=== PATIENT | male | born 1945 | race Caucasian/White ===

== ENCOUNTER → 2016-07-27 | Outpatient (CLI) | payer OTHER, MEDICARE ==
[~2016-07-27] MED LIST: ASPIRIN325; CVS FISH OIL 11 EAC3; EFFIENT10 MG PO; LISINOPRIL-HCT1 EAC2; NIASPAN 500 MG500 M1; PRILOSEC 20 MG20 MG; TOPROL XL50 MG; ZOCOR 20 MG TAB20 M1
--- NOTE | ~2016-07-27 | 2DMMODE ---
[facility] [place] [address] 2 D/M-MODE ECHOCARDIOGRAM Name: DAYANA WRAREN [id number] Admission: 07/27/16 Attend Phys: James Chavez MD Discharge: Date of : 43 Date of Service: 07/27/16 1020 Report #: [id number] THIS REPORT FOR: //name// APPROVED REPORT Study performed: 07/27/2016 08:34:38 EXAM: Comprehensive 2D, Doppler, and color-flow Echocardiogram Patient Location: Out-Patient Room #: Echo lab Other Information Study Quality: Good Indications CAD Hypertension/HDD 2D Dimensions RVDd: 36.03 mm LVEF(%): 50.51 (>50%) IVSd: 10.46 (7-11mm) LVOT Diam: 21.04 (18-24mm) LVDd: 45.02 mm PWd: 10.63 (7-11mm) Ascending Ao: 31.72 (22-36mm) LVDs: 33.51 (25-40mm) Aortic Root: 28.59 mm IVC: 19.00 mm Toussaint's LVEF: 50.51 % Volumes Left Atrial Volume (Systole) Single Plane 4CH: 28.78 mL Single Plane 2CH: 29.70 mL LA ESV Index: 18.00 mL/m2 Aortic Valve AoV Peak Alberto.: 1.09 m/s AO Peak Gr.: 4.77 mmHg LVOT Max P.97 mmHg LVOT Max V: 1.00 m/s STEVE Vmax: 3.17 cm2 Mitral Valve E/A Ratio: 1.0 MV Decel. Time: 199.57 ms MV E Max Alberto.: 0.78 m/s MV A Alberto.: 0.76 m/s MV PHT: 57.88 ms [facility] [place] [address] 2 D/M-MODE ECHOCARDIOGRAM Name: DAYANA WARREN Room #: [facility]#: [id number] Admission: 07/27/16 Attend Phys: James Chavez MD Discharge: Date of : 43 Date of Service: 07/27/16 1020 Report #: [id number] IVRT: 92.27 ms Pulmonary Valve PV Peak Alberto.: 0.87 m/s PV Peak Gr.: 3.02 mmHg Pulmonary Vein P Vein S: 0.41 m/s P Vein A: 0.24 m/s P Vein D: 0.38 m/s P Vein A Dur.: 101.5 msec P Vein S/D Ratio: 1.08 Tricuspid Valve RAP Estimate: 5.00 mmHg Left Ventricle The left ventricle is normal size. There is normal left ventricular wall thickness. The left ventricular systolic function is normal. The left ventricular ejection fraction is within the normal range. LVEF is 50-55%. The left ventricular diastolic function is normal. Right Ventricle The right ventricle is normal size. The right ventricular systolic function is normal. Atria The left atrium size is normal. The right atrium size is normal. Aortic Valve The aortic valve is normal in structure. No aortic regurgitation is present. There is no aortic valvular stenosis. Mitral Valve The mitral valve is normal in structure. Trace mitral regurgitation. No evidence of mitral valve stenosis. Tricuspid Valve The tricuspid valve is normal in structure. There is no tricuspid valve regurgitation noted. Pulmonic Valve The pulmonary valve is normal in structure. There is no pulmonic valvular regurgitation. Great Vessels The aortic root is normal in size. IVC is normal in size and collapses >50% with inspiration. [address] [address] 2 D/M-MODE ECHOCARDIOGRAM Name: DAYANA WARREN Room #: REG [facility]#: [id number] Admission: 07/27/16 Attend Phys: James Chavez MD Discharge: Date of : 43 Date of Service: 07/27/16 1020 Report #: [id number] Pericardium There is no pericardial effusion. <Conclusion> The left ventricle is normal size. The left ventricular systolic function is normal. The right ventricle is normal size. The left atrium size is normal. The right atrium size is normal. The aortic valve is normal in structure. Trace mitral regurgitation. There is no pericardial effusion. <ELECTRONICALLY SIGNED> By: James Chavez MD 07/27/16 1020 1020 1020 James Chavez MD /INF
== END ==
LOC: CV 09:30
DX: I25.10 Atherosclerotic heart disease of native coronary artery without angina pectoris (principal)

== ENCOUNTER → 2017-07-05 | Outpatient (CLI) | payer OTHER, MEDICARE | LOC: NUC 07:04 | DX: I25.10 Atherosclerotic heart disease of native coronary artery without angina pectoris (principal); I10 Essential (primary) hypertension; E78.5 Hyperlipidemia, unspecified ==

== ENCOUNTER → 2017-10-14 | Outpatient (CLI) | payer OTHER, MEDICARE ==
[~2017-10-14] VITALS: Ht 175.3 cm; Wt 76.7 kg
[~2017-10-14] MED LIST changes: +ASPIR 8181 M1 PO; +CRESTOR10 MG PO; +FISH OIL 1,001000 M2 PO; +LISINOPRIL40 MG PO; +METOPROLOL SUCC50 MG PO
--- NOTE | ~2017-10-14 | P ---
[facility] [place] [address] PROCEDURE REPORT Name: DAYANA WARREN Room #: REG [facility]#: [id number] Admission: 10/14/17 Attend Phys: Deven Jimenez MD Discharge: Date of : 43 Report #: [id number] THIS REPORT FOR: //name// CC: Deven Das DO BRIEF HISTORY: The patient is a 72-year-old male for average risk colonoscopy. His last colonoscopy was more than 10 years ago. PREOPERATIVE DIAGNOSIS: Average risk screening colonoscopy. POSTOPERATIVE DIAGNOSES: 1. Negative average risk screening colonoscopy. 2. Moderate sigmoid diverticulosis coli. MEDICATIONS: Deep sedation with propofol per Anesthesia. SPECIMEN: None. ESTIMATED BLOOD LOSS: None. PROCEDURE: Colonoscopy to cecum and terminal ileum. FINDINGS: Prior to propofol sedation, procedure of colonoscopy discussed with the patient as well as potential risks and its complications. He indicates he understands and desires to proceed. DESCRIPTION OF PROCEDURE: With the patient in left lateral decubitus position, digital examination was completed, which revealed no abnormalities. Subsequently, the Olympus video colonoscope was introduced in the rectum, advanced under direct vision to the cecum. Done with minimal difficulty. The cecum was identified by the ileocecal valve and the appendiceal orifice. I was able to visualize the distal segment of the terminal ileum, which was inspected and noted to be unremarkable. At that point, the scope was slowly withdrawn and careful circumferential views obtained. As we withdrew the scope, the prep was noted to be good. The mucosa was within normal limits, normal vascular pattern, normal light reflex. As we withdrew the scope, no mucosal abnormalities were seen. No polyps were seen on this examination. No abnormalities were noted until the sigmoid colon was reached, at which point he was noted to have moderately severe diverticular disease without endoscopic evidence of diverticulitis. The scope was further withdrawn and no additional abnormalities were seen. Upon retroflexion of the rectum, no abnormalities were seen. Scope was withdrawn. The patient tolerated the procedure well. CONDITION OF THE PATIENT UPON DISCHARGE: Following procedure, the patient drowsy, aroused, conversant and will be discharged home when fully ambulatory. [address] [address] PROCEDURE REPORT Name: DAYANA WARREN Room #: REG [facility].#: [id number] Admission: 10/14/17 Attend Phys: Deven Jimenez MD Discharge: Date of : 43 Report #: [id number] INSTRUCTIONS TO THE PATIENT AND FAMILY AT THE TIME OF DISCHARGE: No neoplastic lesions were seen on today's exam. He is considered average risk. Suggest followup colon exam in 10 years for average risk patient. He will return to care of Dr. Bertin Das and return to see me as needed. Withdrawal time was 12 minutes 27 seconds. <ELECTRONICALLY SIGNED> By: Deven Jimenez MD 10/15/17 0721 [id number] Deven Jimenez MD /trace
== END | disposition home or self-care (01) ==
LOC: GI 07:11
DX: Z12.11 Encounter for screening for malignant neoplasm of colon (principal); K57.30 Diverticulosis of large intestine without perforation or abscess without bleeding; I10 Essential (primary) hypertension; E78.5 Hyperlipidemia, unspecified; I25.2 Old myocardial infarction; Z98.890 Other specified postprocedural states; Z95.5 Presence of coronary angioplasty implant and graft; Z79.899 Other long term (current) drug therapy; Z79.82 Long term (current) use of aspirin
CPT/HCPCS: 62110; 62900

== ENCOUNTER 2017-11-17 06:38 | Day surgery (SDC) | payer OTHER, MEDICARE ==
[~2017-11-17] VITALS: Ht 175.3 cm; Wt 74.8 kg
--- NOTE | ~2017-11-17 | O ---
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 POSTOPERATIVE DIAGNOSIS: Right neck mass, frozen section positive for atypical squamous cells. PROCEDURE PERFORMED: 1. Right supraomohyoid neck dissection. 2. Right partial parotidectomy with facial nerve dissection and preservation. 3. Excision of right submandibular gland. 4. Nerve integrity monitoring x 3 hours. 5. Direct laryngoscopy with multiple biopsies. 6. Flexible bronchoscopy. 7. Rigid esophagoscopy. INDICATIONS: The patient is a 72-year-old gentleman initially referred for a right-sided neck mass by his primary care physician, Dr. Das. He had noticed an incidental swelling. This was not symptomatic in the sense of pain. He had no systemic symptoms of fever, chills, or night sweats. CT scan showed a 2.8-cm cystic mass in the right submandibular area interposed between the submandibular gland and the anterior parotid gland. There were multiple subcentimeter lymph nodes present that did not appear to pathologically enhance. Fine needle aspiration was done on the mass positive for malignant cells, favoring squamous cell carcinoma. P16 staining was done, this was negative. In light of the above, recommendations were made to proceed with definitive biopsy for diagnosis in addition to definitive treatment of the mass. As this was labeled squamous cell carcinoma, panendoscopy was recommended for multiple blind biopsies. DESCRIPTION OF PROCEDURE: The patient was brought to the operating room and placed supine on the operating table. After adequate general anesthesia was achieved via endotracheal intubation, he was turned 90 degrees. Procedure began with a panendoscopy. A Dedo laryngoscope was used to examine the upper airway. Oral cavity, nasopharynx, oropharynx, hypopharynx and larynx were systematically evaluated. There was no abnormal mass. The patient is status post tonsillectomy. Dedo laryngoscope was removed and a Jesberg rigid esophagoscope was passed through the cricopharyngeus 40 cm to the stomach. With withdrawal of the scope, complete examination was made of the mucosa of the esophagus in a [address] [address] OPERATIVE REPORT Name: BRIANADAYANA Room #: 432-P REG [facility]#: [id number] Admission: 11/17/17 Attend Phys: Lalti Walden MD Discharge: Date of : 43 Report #: [id number] 360-degree fashion on withdrawal. No abnormal masses or lesions were noted. The Jesberg esophagoscope was removed. The Dedo laryngoscope was then reintroduced and the patient was placed into suspension from the [facility]. Through the laryngoscope and alongside the endotracheal tube, flexible bronchoscopy was undertaken. A complete examination was made of the subglottis, trachea, valentino, right and left mainstem bronchus, segmental and subsegmental bronchi as far as feasible with the bronchoscope. Serial and systematic exam was done beginning on the right upper lobe and extending through the right side and then back to the left side. No abnormal masses or mucosal lesions were noted. Bronchoscope was then removed. The laryngoscope was then taken out of suspension and biopsies were then undertaken in the right and left piriform sinus, right and left base of the tongue, right and left tonsillar fossa, right and left nasopharynx. No abnormal or suspicious lesions were palpated or noted. Biopsies were done as a workup for unknown primary. These had minimal bleeding. The Dedo laryngoscope was then removed. The patient was then turned to 480 degrees and the planned incision was marked out in the right neck as a submandibular incision. A posterior limb was then drawn and a standard Schobinger incision in case of need to convert to a full neck dissection. This was injected with 1% Xylocaine with 1:100,000 epinephrine. The patient was then prepped and draped in a sterile fashion and all gowns and gloves were changed. The sterile part of the procedure was kept separate from the endoscopy. As a separate part of the procedure, the Xomed nerve integrity monitor was applied to the right face for continuous intraoperative monitoring of the facial nerve. Needle electrodes were placed in orbicularis jordon and orbicularis oculi muscles with ground electrodes in the soft tissue overlying the sternum and contralateral shoulder. Electrode resistance and impedance was measured and found to be acceptable. Threshold and stimulus intensity parameters were set and the patient was monitored for the entirety of the case of approximately 3 hours in order to locate and protect vital structures. The procedure began with an incision in the submandibular region. This was carried anteriorly to the submental and then posteriorly extending around up towards the mandibular angle and simulating the lower part of a Benton incision. Incision was made through skin and subcutaneous tissue and platysma. Subplatysmal flaps were then elevated superiorly and inferiorly. Care was taken to elevate the superior flap with a #10 blade to avoid the marginal mandibular branch of the facial nerve. These were held back then with stay sutures of 2-0 silk. An incision was then made on the submandibular fascia and a fascial flap was then elevated housing the marginal mandibular branch of the facial nerve, which was identified positively with probe stimuli. Once the nerve was identified, the dissection was taken anteriorly. Dissection then began in level 1. The lymph node bearing tissue overlying the genioglossus muscle was then excised, added superior border and left lateral border. This was extended down to the laryngeal cartilage just below the omohyoid muscle. This was then swept from lateral to medial. Dissection then continued until a mylohyoid muscle [facility] [address] [place] [address] OPERATIVE REPORT Name: DAYANA WARREN Nancy Room #: 432-P REG [facility].#: [id number] Admission: 11/17/17 Attend Phys: Lalit Walden MD Discharge: Date of : 43 Report #: [id number] could be seen various veins were then identified, clamped between Ligaclips and divided. The submandibular gland was then freed the, muscle was retracted. The lingual nerve was identified. This person thought accomplished bruising, clamped between Ligaclips and divided. It is submandibular duct identified, clamped between Ligaclips and divided. This was then swept posterior and inferior continuing the dissection posterior dissection was then made inferiorly along the omohyoid muscle and then extended along the omohyoid muscle back to the sternocleidomastoid muscle. All lymph node bearing tissue superior to this was then freed. The jugular vein and carotid artery were identified. Attention was then returned to the submandibular triangle. Submandibular gland continued to dissect posteriorly. The mass was easily identified and opposed in a space between the posterior submandibular gland and the anterior parotid. Once the marginal mandibular branch of the facial nerve was identified, partial parotidectomy was then undertaken retrograde from the distal to proximal. Dissection then continued on the nerve until the lower half of the parotid gland could be excised with a mass. This mass was a very firm appearing mass, but did seem to have a cystic component even though this had been deflated by the fine needle aspiration. Once the parotid was free, dissection was continued inferiorly until the digastric muscle was identified. The hypoglossal nerve was then positively identified and protected there and then, attention was then turned more inferiorly. The anterior border of sternocleidomastoid muscle was then excised with harmonic lee ann and the fascia was then reflected superiorly. Beginning at the omohyoid muscle inferiorly, all lymph node bearing tissue was removed off the jugular vein from inferior to superior. There was an external jugular vein, clamped between Ligaclips and divided. Dissection then continued from inferior to superior. This lymph node bearing tissue was removed off the jugular vein and up to the hinge of where the dissection on the parotid ended. The care was taken to protect the jugular vein as well as the spinal accessory nerve, which was identified positively and confirmed with probe stimuli posterior to the jugular vein. The dissection then continued under the mandible and then was excised inferior to the facial nerve along the sternocleidomastoid muscle. The specimen was then marked for pathology and levels and oriented with the mass. This was delivered off the field as a frozen section. Frozen section of the mass showed atypical squamous cells, but did not confirm squamous cell carcinoma. In the differential diagnosis of the cystic mass was a branchial cleft cyst and Warthin's tumor. 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 Because of this finding and because there was a clear surgical plane for wide local excision around the mass there, it was elected not to proceed with any more radical surgery. The wound was then irrigated, hemostasis assured with bipolar cautery and clip ligature. The submandibular fascia was then sutured back into anatomic position on the digastric muscle. A 15-Belgian Bruno drain was placed through a separate posterior nerve incision and then, the subcutaneous tissue closed with interrupted 3-0 Vicryl and 4-0 Vicryl deep dermal sutures were placed as well as 35 wide santos on skin. The drain was sutured in place with 2-0 silk and connected to bulb suction. The patient was then returned to anesthesia, awakened without difficulty and returned to [facility] [address] [place] [address] OPERATIVE REPORT Name: DAYANA WARREN Room #: 432-P [facility] M.R.#: [id number] Admission: 11/17/17 Attend Phys: Lalit Walden MD Discharge: Date of : 43 Report #: [id number] recovery in good condition. Sponge and needle counts were correct. There were no complications. Blood loss was about 100 mL. He will be watched overnight for monitoring. Presuming he does well, discharged to home with plans to follow up with me in 48 hours for drain removal, 1 week for suture removal. Written and verbal discharge instructions and emergency precautions have been given to his . DISCHARGE MEDICATIONS: Include hydrocodone/acetaminophen 7.5/325 one to two q.4-6h. p.r.n., Phenergan suppository 25 mg 1 per rectum q.4-6h. p.r.n., clindamycin 300 mg 1 t.i.d. for 10 days. He is instructed on light activity and soft diets. <ELECTRONICALLY SIGNED> By: Lalit Walden MD 11/18/17 1219 1437 [id number] Lalit Walden MD /nt
--- NOTE | ~2017-11-17 | PATH ---
[facility] [place] [address] PATHOLOGY RPT PROCEDURE Name: DAYANA WARREN Room #: DEP [facility]..#: [id number] Admission: 11/17/17 Date of : 43 Discharge: 11/18/17 Report #: [id number] Path Case #: [id number] [facility] Accession Number: [id number] . 01 Material submitted: . PART A: RIGHT MODIFIED NECK DISSECTION AND PARTIAL PAROTIDECTOMY PART B: RIGHT NASAL PHARYNX PART C: LEFT NASAL PHARYNX PART D: RIGHT TONSIL FOSSA PART E: LEFT TONSIL FOSSA PART F: RIGHT PYRIFORM SINUS PART G: LEFT PYRIFORM SINUS PART H: RIGHT BASE OF TONGUE PART I: LEFT BASE OF TONGUE . 01 Clinician provided ICD-10: 0 . 01 Clinical history: . 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 . 02 Diagnosis: A. Level I, radical neck dissection: - CYSTIC MASS SHOWING ATYPICAL SQUAMOUS EPITHELIUM (PLEASE SEE COMMENT). - Five reactive lymph nodes; negative for malignancy (0/5). - Skeletal muscle with reactive changes. . Submandibular gland, radical neck dissection: - Submandibular gland with reactive changes; negative for malignancy. . Parotid gland, partial parotidectomy: - Foci of oncocytic metaplastic changes. - Background salivary gland tissue showing reactive changes; negative for malignancy. . Level IIA, radical neck dissection: - Five reactive lymph nodes; negative for malignancy (0/5). . Level IIB, radical neck dissection: - Four reactive lymph nodes; negative for malignancy (0/4). . Level III; radical neck dissection: - No lymph nodes identified. - Fibrovascular and fibroadipose connective tissue with congestion. - Skeletal muscle with reactive changes. - Negative for malignancy. . [facility] [address] [place] [address] PATHOLOGY RPT PROCEDURE Name: DAYANA WARREN Room #: [facility] M..#: [id number] Admission: 11/17/17 Date of : 43 Discharge: 11/18/17 Report #: [id number] Path Case #: [id number] B. Squamous mucosa, right nasal pharynx, biopsy: - Moderate chronic inflammation. - Overlying ciliated columnar epithelium showing reactive changes along with squamous metaplasia. . C. Squamous mucosa, left nasal pharynx, biopsy: - Moderate chronic inflammation. - Overlying ciliated columnar epithelium showing reactive changes along with squamous metaplasia. . D. Squamous mucosa, right tonsil fossa, biopsy: - Mild hyperkeratosis along with reactive changes. - Chronic inflammation. - Negative for malignancy. . E. Squamous mucosa, left tonsil fossa, biopsy: - Mild hyperkeratosis along with reactive changes. - Chronic inflammation. - Negative for malignancy. . F. Squamous mucosa, right pyriform sinus, biopsy: - Hyperkeratotic squamous epithelium with reactive changes. - Negative for malignancy. . G. Squamous mucosa, left pyriform sinus, biopsy: - Hyperkeratotic squamous epithelium with reactive changes. - Negative for malignancy. . H. Squamous mucosa, right base of tongue, biopsy: - Subepithelial lymphoid tissue compatible with lingual tonsil showing reactive changes. - Hyperkeratosis and focal fungal hyphal elements present. - Reactive changes; negative for malignancy. . I. Squamous mucosa, left base of tongue, biopsy: - Mild hyperkeratosis. - Chronic inflammation. - Subepithelial lymphoid tissue, compatible with lingual tonsil showing reactive changes. - Negative for malignancy. . (IUV:mml; 11/19/17) QL/11/22/2017 . 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 Although irregular squamous epithelial islands are present within the stroma, this area is surrounded by abundant reparative changes secondary to fine needle aspiration. . This part of the case along with the panendoscopy biopsy tissues is sent to [facility], [place], [place] for an expert opinion. An addendum report will be issued subsequent to receiving the same along with a refined diagnosis for the cystic mass. . Co-review: Dr. Viktoriya Spencer and Dr. Apryl Bryson. . Findings of this case are telephoned and discussed with Dr. Walden at 12:44 p.m. on 11/19/17. . (IUV:mml; 11/19/17) . 02 Addendum: . Special studies report received from [facility] [address] , [place] [address], on case [id number], labeled with their number [id number], dated 12/06/2017. . PATH Pathology Consultation . Pathology Consult . Interpretation . 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 . Special stains for mucin (blocks A1 and A2) are negative. An immunostain for p16 shows patchy nonspecific immunoreactivity. . Right nasopharynx, biopsy ([id number], 11/17/2017 part B): Benign respiratory mucosa. . Left nasopharynx, biopsy ([id number], 11/17/2017 part C): Benign respiratory mucosa. . Right tonsil fossa, biopsy ([id number], 11/17/2017 part D): Benign squamous mucosa. . Left tonsil fossa, biopsy ([id number], 11/17/2017 part E): Benign squamous mucosa. [address] [address] PATHOLOGY RPT PROCEDURE Name: DAYANA WARREN Room #: DEP [facility]#: [id number] Admission: 11/17/17 Date of : 43 Discharge: 11/18/17 Report #: [id number] Path Case #: [id number] . Right pyriform sinus, biopsy ([id number], 11/17/2017 part F): Benign squamous mucosa. . Left pyriform sinus, biopsy ([id number], 11/17/2017 part G): Benign squamous mucosa. . Right base of tongue, biopsy ([id number], 11/17/2017 part H): Benign squamous mucosa. . Left base of tongue, biopsy ([id number], 11/17/2017 part I): Benign squamous mucosa. . Comment: Thank you for submitting this interesting case for review. The right neck dissection and partial parotidectomy shows a predominantly squamous lined cyst associated with fibrosis and chronic inflammatory changes. The cyst is also partially lined by benign glandular appearing epithelium. Within the cyst, crystals are identified. The surrounding tissue shows benign salivary gland tissue and a few scattered oncocytic cysts. The squamous lining shows mild epithelial atypia, however, the degree of atypia appears reactive in nature given the extent of fibrosis and inflammation present. The differential diagnosis includes Warthin's tumor with squamous metaplasia and a salivary duct cyst with squamous metaplasia. 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 The additional submitted specimens show benign respiratory and squamous mucosa. Clinical correlation is recommended. If there is a concerning mass lesion clinically, then re-biopsy may be indicated. . . Material Received A. [id number]: Right neck and parotid, right and left nasal pharynx, right and left tonsil fossa, right and left pyriform sinus, right and left tongue 10 stained slides A. rec'd 2 blocks 11/25/17 . . Report electronically signed by Brayan Cohen M.D. [phone] . I verify that I have examined all relevant slides/materials for the specimen(s) and rendered or confirmed the diagnosis. . Disclaimer This test was developed and its performance characteristics determined by [facility] in a manner consistent with CLIA requirements. This test has not been cleared or approved by the U.S. Food and Drug Administration. . A complete copy of the report is on file. [address] [address] PATHOLOGY RPT PROCEDURE Name: DAYANA WARREN Room #: DEP [facility].R.#: [id number] Admission: 11/17/17 Date of : 43 Discharge: 11/18/17 Report #: [id number] Path Case #: [id number] . Professional services performed by [facility] [address] [place] [address]. [facility] [address] [facility], [facility] [address], [place] [address]. . (AMGeorgina 12/06/2017) . . This case was prepared and proofread by Dr. Audrey Wellington and electronically signed and released by Dr. Lidia Guerra. . (IUV:amj; 12/06/2017) JCW/12/06/2017 Addendum Electronically Signed by Lidia Guerra MD, Pathologist . 02 Electronically signed: . Audrey Wellington MD, Pathologist NPI- [id number] . 01 Gross description: . A. Specimen is received fresh from the OR labeled with the patient's name, and "right modified neck dissection partial parotidectomy", consists of a neck dissection measuring 9 cm anterior to posterior approximately 8 cm superior to inferior, and 1 cm in thickness. Per Dr. Walden, there is no muscle, or vein present in the specimen. Dr. Walden indicates the parotid, the "superior mass", the submandibular gland, as well as oriented the specimen as superior inferior, anterior and posterior. The specimen is further subdivided into lymph node regions as 1 with the submandibular gland, 2A, 2B, and 3. At this point, the specimen is further inked as follows in the superficial aspect. The 1 and 2A including the submandibular gland are inked red on the superficial aspect, the parotid gland is inked green on the superficial aspect, and the inferior 3 of the lymph node dissection is inked blue. The deep margin is inked black. Further, the submandibular gland in region 1 measures 2 x 1.5 x 1 cm. The parotid gland in the 2B region and the posterior aspect of the specimen measures 4 x 3 x 1.5 cm. The "superior mass" measures 1.5 x 1 x [address] Walden's request, the superior mass is dissected off and sectioned to show a cystic lesion filled with brown liquid. Wedding Makeup Artist section of the cystic mass is submitted for frozen section as FSA1, subsequently submitted for permanent sections as A1. The remainder of this cystic superior mass is submitted in A2. (IUV:[place]; 11/17/2017) . The modified neck dissection specimen is divided into parotid, I, IIA, IIB and III. Sectioning the neck dissection reveals a very few possible lymph node candidates ranging in size from 0.3 cm-0.6 cm. The salivary glands (parotid and submandibular) demonstrate lobulated yellow to yellow-rogel cut surfaces with no parenchymal masses or lesions identified. [address] [address] PATHOLOGY RPT PROCEDURE Name: DAYANA WARREN Room #: DEP [facility]#: [id number] Admission: 11/17/17 Date of : 43 Discharge: 11/18/17 Report #: [id number] Path Case #: [id number] Wedding Makeup Artist sections are submitted A1-A21. . A3-A6 all tissue from "I" for possible microscopic lymph nodes A7 whole lymph node candidates from "IIA" A8-A12 all tissue from "IIA" for possible microscopic lymph nodes A13 one probable lymph node candidate bisected from "I" (submandibular region) A14-A15 submandibular gland, inventory representative ("I") A16-A18 parotid gland, inventory representative ("IIB") A19-A21 fat from "III", inventory representative . B. Received in formalin "Dayana Warren, right nasal pharynx" is a 0.6 x 0.5 x 0.3 cm pink tissue fragment which is entirely submitted B1. . C. Received in formalin labeled "Dayana Warren, left nasal pharynx is a 0.6 x 0.5 x 0.3 cm soft pink tissue fragment which is entirely submitted as C1. . D. Received in formalin labeled "Dayana Warren, right tonsil fossa" is a 0.2 cm soft rogel tissue fragment which is entirely submitted as D1. . E. Received in formalin labeled "Dayana Warren, left tonsil fossa is a 0.3 cm rogel tissue fragment which is entirely submitted as E1. . F. Received in formalin "Dayana Warren, right pyriform sinus" is a 0.1 cm brown tissue fragment which is entirely submitted as F1. . G. Received in formalin labeled "Dayana Warren, left pyriform sinus" is less than 0.1 cm brown possible tissue fragment which is entirely submitted as G1. . H. Received in formalin "Dayana Warren, right base of tongue" are 2 brown tissue fragments each averaging 0.3 cm which are entirely submitted as H1. . I. Received in formalin labeled "Dayana Warren, left base of tongue "are 4 soft rogel tissue fragments each averaging 0.3 cm which are entirely submitted as I1. (VIRAJ; 11/18/2017) . . . FROZEN SECTION DIAGNOSIS: (Audrey Wellington M.D.) . FSA1, mass/superior, modified neck dissection: - Cystic lesion with atypical squamous epithelium, oncocytic metaplasia present in the adjacent salivary gland tissue. [address] [address] PATHOLOGY RPT PROCEDURE Name: DAYANA WARREN Room #: [facility]..#: [id number] Admission: 11/17/17 Date of : 43 Discharge: 11/18/17 Report #: [id number] Path Case #: [id number] . Findings are discussed with Dr. Walden and a written report is placed in the patient's chart. . Frozen section performed at [facility], [address] [place] [address] , [place] [address]. /QMS . 02 Pathologist provided ICD-10: K11.8, R59.0, J31.1, J35.8, J35.01, J32.9, K14.0 . 02 CPT . 150940, 106683, 560066, 109126, 375489, 697435, 046982, 525481, 689032, 993978, 815698, 705794, 580911, 921863, 966334 Specimen Comment: A courtesy copy of this report has been sent to Specimen Comment: [phone], . Specimen Comment: Report sent to and Performed at: [address], [place], [place] [id number] MD Jacob Vallejo MD Phone: [phone] Performed at: [address] [id number] MD Audrey Wellington MD Phone: [phone]
[2017-11-17 17:30] VITALS: BP 167/88
[2017-11-17 21:00] VITALS: BP 130/72
[2017-11-18 00:45] VITALS: BP 124/70
[2017-11-18 04:30] VITALS: BP 143/72
[2017-11-18 10:40] VITALS: BP 118/68
== END 2017-11-18 11:40 | disposition home or self-care (01) ==
LOC: OR 06:38 → PRE 10:51 → FCC 16:30 → 4E 17:30 → OR 11-18 11:40
DX: C44.42 Squamous cell carcinoma of skin of scalp and neck (principal); I10 Essential (primary) hypertension; E78.5 Hyperlipidemia, unspecified; I25.2 Old myocardial infarction; Z95.5 Presence of coronary angioplasty implant and graft; Z98.890 Other specified postprocedural states; Z79.899 Other long term (current) drug therapy; Z85.828 Personal history of other malignant neoplasm of skin; Z79.82 Long term (current) use of aspirin
CPT/HCPCS: 10084; 50010; 50101; 50331; 50386; 50398; 50455; 50607; 51412; 52190; 52220; 52225; 56524; 56526; 56528; 56668; 56760; 57006; 62110; 62900; 64029; 65020; 65040; 65131; 70005

== ENCOUNTER → 2018-07-04 | Outpatient (CLI) | payer OTHER, MEDICARE ==
--- NOTE | 2018-07-04 09:49 | 2DMMODE ---
[facility] [place] [address] 2 D/M-MODE ECHOCARDIOGRAM Name: DAYANA WARREN Room #: REG [facility]#: [id number] ������������� Admission: 07/04/18 ������������� Attend Phys: James Chavez MD Discharge: ��� ������������� ��� Date of : 43 Date of Service: 07/04/18 0949 �� Report #: [id number] �������� ��������������������������������������������[id number] THIS REPORT FOR: //name// APPROVED REPORT Study performed: 07/04/2018 09:11:54 EXAM: Comprehensive 2D, Doppler, and color-flow Echocardiogram Patient Location: Echo lab Status: routine BSA: 1.93 HR: 54 bpm BP: 120/72 mmHg Rhythm: NSR Other Information Study Quality: Adequate Indications CAD 2D Dimensions RVDd: 36.38 mm IVSd: 11.12 (7-11mm) LVOT Diam: 20.79 (18-24mm) LVDd: 46.58 mm PWd: 10.02 (7-11mm) Ascending Ao: 32.96 (22-36mm) LVDs: 33.65 (25-40mm) Aortic Root: 30.79 mm IVC: 18.00 mm Volumes Left Atrial Volume (Systole) Single Plane 4CH: 25.66 mL Single Plane 2CH: 35.01 mL LA ESV Index: 18.00 mL/m2 Aortic Valve AoV Peak Alberto.: 1.06 m/s AO Peak Gr.: 4.47 mmHg LVOT Max P.09 mmHg LVOT Max V: 0.88 m/s STEVE Vmax: 2.82 cm2 Mitral Valve E/A Ratio: 0.7 MV Decel. Time: 254.22 ms MV E Max Alberto.: 0.60 m/s [facility] [address] [place] [address] 2 D/M-MODE ECHOCARDIOGRAM Name: DAYANA WARREN Room #: [employer]#: [id number] ������������� Admission: 07/04/18 ������������� Attend Phys: James Chavez MD Discharge: ��� ������������� ��� Date of : 43 Date of Service: 07/04/18 0949 �� Report #: [id number] �������� ��������������������������������������������[id number] MV A Alberto.: 0.87 m/s MV PHT: 73.72 ms IVRT: 106.11 ms Pulmonary Valve PV Peak Alberto.: 0.99 m/s PV Peak Gr.: 3.90 mmHg Pulmonary Vein P Vein S: 0.39 m/s P Vein A: 0.22 m/s P Vein D: 0.41 m/s P Vein A Dur.: 120.0 msec P Vein S/D Ratio: 0.95 Tricuspid Valve RAP Estimate: 5.00 mmHg Left Ventricle The left ventricle is normal size. There is normal left ventricular wall thickness. The left ventricular systolic function is normal. The left ventricular ejection fraction is within the normal range. LVEF is 55%. Mild diastolic dysfunction is present (impaired relaxation pattern). Right Ventricle The right ventricle is normal size. The right ventricular systolic function is normal. Atria The left atrium size is normal. The right atrium size is normal. Aortic Valve The aortic valve is normal in structure. No aortic regurgitation is present. There is no aortic valvular stenosis. Mitral Valve The mitral valve is normal in structure. Trace mitral regurgitation. No evidence of mitral valve stenosis. Tricuspid Valve The tricuspid valve is normal in structure. There is no tricuspid valve regurgitation noted. Unable to assess PA pressure. Pulmonic Valve The pulmonary valve is normal in structure. Trace pulmonic regurgitation. [facility] [address] [place] [address] 2 D/M-MODE ECHOCARDIOGRAM Name: DAYANA WARREN Room #: REG [facility]#: [id number] ������������� Admission: 07/04/18 ������������� Attend Phys: James Chavez MD Discharge: ��� ������������� ��� Date of : 43 Date of Service: 07/04/18 0949 �� Report #: [id number] �������� ��������������������������������������������[id number] [employer]essels The aortic root is normal in size. The ascending aorta is normal in size. IVC is normal in size and collapses >50% with inspiration. Pericardium There is no pericardial effusion. <Conclusion> The left ventricle is normal size. There is normal left ventricular wall thickness. The left ventricular systolic function is normal. Mild diastolic dysfunction is present (impaired relaxation pattern). The right ventricle is normal size. The left atrium size is normal. The aortic valve is normal in structure. Trace mitral regurgitation. There is no tricuspid valve regurgitation noted. ��������������������������������������������� <ELECTRONICALLY SIGNED> ���������������������������������������� By: James Chavez MD ��������������������������������������������� 07/04/1849 James Chavez MD /INF
== END ==
LOC: CV 07:22
DX: I25.10 Atherosclerotic heart disease of native coronary artery without angina pectoris (principal)

== ENCOUNTER → 2019-07-04 | Outpatient (CLI) | payer OTHER, MEDICARE | LOC: SJCVCIMAG 10:55 | DX: R94.31 Abnormal electrocardiogram [ECG] [EKG] (principal); I25.10 Atherosclerotic heart disease of native coronary artery without angina pectoris; I10 Essential (primary) hypertension; E78.00 Pure hypercholesterolemia, unspecified; Z79.899 Other long term (current) drug therapy; Z87.891 Personal history of nicotine dependence ==

== ENCOUNTER → 2019-10-04 | Outpatient (CLI) | payer OTHER, MEDICARE | LOC: SJCVC 10:30 | PROVIDERS: ATTEND Internal Medicine Cardiovascular Disease | DX: I45.10 Unspecified right bundle-branch block (principal); R94.31 Abnormal electrocardiogram [ECG] [EKG]; I25.10 Atherosclerotic heart disease of native coronary artery without angina pectoris; I10 Essential (primary) hypertension; E78.00 Pure hypercholesterolemia, unspecified; Z82.49 Family history of ischemic heart disease and other diseases of the circulatory system; Z79.82 Long term (current) use of aspirin; Z79.899 Other long term (current) drug therapy; Z87.891 Personal history of nicotine dependence ==

== ENCOUNTER → 2020-04-09 | Outpatient (CLI) | payer OTHER, MEDICARE | LOC: SJCVCIMAG 10:10 | PROVIDERS: ATTEND Internal Medicine Cardiovascular Disease | DX: I25.10 Atherosclerotic heart disease of native coronary artery without angina pectoris (principal); R94.31 Abnormal electrocardiogram [ECG] [EKG]; I45.10 Unspecified right bundle-branch block; I49.1 Atrial premature depolarization; I10 Essential (primary) hypertension; E78.00 Pure hypercholesterolemia, unspecified; I25.2 Old myocardial infarction; Z98.61 Coronary angioplasty status; Z88.8 Allergy status to other drugs, medicaments and biological substances; Z79.82 Long term (current) use of aspirin; Z79.899 Other long term (current) drug therapy; Z82.49 Family history of ischemic heart disease and other diseases of the circulatory system ==

== ENCOUNTER → 2020-10-08 | Outpatient (CLI) | payer OTHER, MEDICARE | LOC: SJCVC 09:49 | PROVIDERS: ATTEND Internal Medicine Cardiovascular Disease | DX: R94.31 Abnormal electrocardiogram [ECG] [EKG] (principal); I45.10 Unspecified right bundle-branch block; R00.1 Bradycardia, unspecified; I25.10 Atherosclerotic heart disease of native coronary artery without angina pectoris; I10 Essential (primary) hypertension; E78.00 Pure hypercholesterolemia, unspecified; I25.2 Old myocardial infarction; Z95.5 Presence of coronary angioplasty implant and graft; Z88.8 Allergy status to other drugs, medicaments and biological substances; Z79.82 Long term (current) use of aspirin; Z79.899 Other long term (current) drug therapy; Z82.49 Family history of ischemic heart disease and other diseases of the circulatory system ==